=== PATIENT | female | born 1950 | race Caucasian/White ===

== ENCOUNTER 2019-03-24 01:14 | Day surgery (SDC) | payer MEDICARE, SELFPAY ==
[2019-03-24 06:52] VITALS: BP 114/95; PULSE 76; RESP 18; TEMP 36.5; O2SAT 96
[2019-03-24] MEDS: LACTATED RINGERS 1,000 ML 150 ML IV CONT (07:11)
--- NOTE | 2019-03-24 07:54 | PM.IMHP ---
H&P: HPI History of Present Illness Chief complaint: Neoplasm Screening Narrative: Molly Morillo is a 68 year old female presents today for surveillance colonoscopy. She reports last colonoscopy was in 2017 and had polyps. She was told to come back in 1 year but got behind. She denies any acute bowel habit changes, diarrhea, constipation, melena, hematochezia, abdominal pains or rectal pains. Denies any upper Gi symptoms. Denies abnormal weight loss, fever or chills. She is also concerned about elevated LFT. Alk phos 136, AST 102, and ALT 60. It appears they were elevated in 2017 as well. She had abd us 01/2019 and had noted hepatic steatosis. Acute hepatitis panel was negative. She does drink 2 glasses of wine nightly for the last ten years Review of Systems Review of Systems: All systems reviewed & are unremarkable except as noted in HPI and below PMFSH Past Medical History Medical History (Updated 03/24/19 @ 07:58 by Caitlyn Mi, APPLIANCE TESTER) Adult hypothyroidism Anxiety Chronic GERD Congenital absence of one kidney Depression Elevated liver enzymes Hx of adenomatous colonic polyps Mixed hyperlipidemia NAFLD (nonalcoholic fatty liver disease) JANNETTE (obstructive sleep apnea) Surgical History Surgical History (Updated 03/24/19 @ 07:59 by Caitlyn Mi, APPLIANCE TESTER) Hx of colonoscopy Hx of repair of left rotator cuff Hx of total hysterectomy Family History Family History (Updated 03/24/19 @ 07:59 by Caitlyn Mi, APPLIANCE TESTER) Mother Hypertension Father Family history of diabetes mellitus in first degree relative Sibling Lung cancer Social History Social History (Updated 03/24/19 @ 08:00 by Caitlyn Mi, APPLIANCE TESTER) Smoking packs per day: 2 Smoking cigarettes per day: 40.0 Years smoked: 30 Smoking pack-years: 60.00 Smoking status: Former smoker Tobacco type: cigarettes Second hand tobacco smoke exposure: Yes Smoking end date: 02/09/15 Alcohol intake: current Drinks per week: 14 Alcohol use details: 2 glasses of wine nightly Substance use: never Gender identity (if verbalized by the patient): Female Meds Home Medications and Allergies Home Medications Medication Instructions Recorded Confirmed Type alprazolam 0.5 mg tablet 0.5 mg PO PRN PRN 12/17/18 03/23/19 History sertraline 50 mg tablet 50 mg PO DAILY #90 tablet 12/27/18 03/24/19 Rx levothyroxine 88 mcg tablet 88 mcg PO DAILY #90 tablet 03/09/19 03/23/19 Rx simvastatin 40 mg PO DAILY 03/23/19 03/24/19 History trazodone 50 mg PO HS 03/23/19 03/24/19 History Allergies Allergy/AdvReac Type Severity Reaction Status Date / Time cefuroxime Allergy Unknown Redness of Verified 03/24/19 06:51 Skin doxycycline Allergy Unknown Redness of Verified 03/24/19 06:51 Skin Vital Signs Vital Signs - 24 hr 03/24/19 06:52 Temperature 36.5 C Pulse Rate 76 Respiratory Rate 18 Blood Pressure 114/95 H Pulse Oximetry 96 Exam Const: General: cooperative, healthy appearing, comfortable, alert and awake Nutritional Appearance: average body habitus Orientation/consciousness: oriented to person, oriented to place, oriented to time and patient oriented x3 Limitations: no limitations HENMT: Head: normal to inspection and normocephalic Mouth: Yes Normal oral and palatal mucosa present and Yes moist mucous membranes Neck: Neck: normal visual inspection, supple and no JVD Carotids: no bruits Resp: Effort & Inspection: normal respiratory effort and no respiratory distress Auscultation: clear to auscultation bilaterally Cardio: Rate: regular rate Rhythm: regular rhythm Heart sounds: S1 normal heart sound present, S2 normal heart sound present, no gallops, no murmurs and no rubs GI: Inspection: normal to inspection GI Palp: No abdominal tenderness and No No hepatosplenomegaly present Percussion: Yes normal to percussion Auscultation: normal bowel sounds Rectal Exam: deferred Skin: General skin exam: normal color L
--- NOTE | 2019-03-24 08:03 | P.PNAN_ITS ---
Anes - Initial Pre Proc Eval Procedure: Operation Date: 03/24/19 08:00 Proposed Procedures p Screening Colonoscopy - Lavelle Mayen DO Date/Time: 03/24/19 08:03 Surgeon: Lavelle Mayen DO Pre Op Diagnosis: Neoplasm Screening Patient Data Age: 68 Gender: F Height: 5 ft 1 in Weight: 64.3 kg Last Vital Signs Temp 97.7 F 03/24/19 06:52 Pulse 76 03/24/19 06:52 Resp 18 03/24/19 06:52 BP 114/95 H 03/24/19 06:52 Pulse Ox 96 03/24/19 06:52 Allergies Allergy/AdvReac Type Severity Reaction Status Date / Time cefuroxime Allergy Unknown Redness of Verified 03/24/19 06:51 Skin doxycycline Allergy Unknown Redness of Verified 03/24/19 06:51 Skin Home Medications Medication Instructions Recorded Confirmed Type alprazolam 0.5 mg tablet 0.5 mg PO PRN PRN 12/17/18 03/23/19 History sertraline 50 mg tablet 50 mg PO DAILY #90 tablet 12/27/18 03/24/19 Rx levothyroxine 88 mcg tablet 88 mcg PO DAILY #90 tablet 03/09/19 03/23/19 Rx simvastatin 40 mg PO DAILY 03/23/19 03/24/19 History trazodone 50 mg PO HS 03/23/19 03/24/19 History Patient hx anesthesia problems: none Family hx anesthesia problems: none PMFSH Past Medical History Medical History (Updated 03/24/19 @ 07:58 by Caitlyn Mi, COMPLAINTS COORDINATOR) Adult hypothyroidism Anxiety Chronic GERD Congenital absence of one kidney Depression Elevated liver enzymes Hx of adenomatous colonic polyps Mixed hyperlipidemia NAFLD (nonalcoholic fatty liver disease) JANNETTE (obstructive sleep apnea) Surgical History Surgical History (Updated 03/24/19 @ 07:59 by Caitlyn Mi, COMPLAINTS COORDINATOR) Hx of colonoscopy Hx of repair of left rotator cuff Hx of total hysterectomy Family History Family History (Updated 03/24/19 @ 07:59 by Caitlyn Mi, COMPLAINTS COORDINATOR) Mother Hypertension Father Family history of diabetes mellitus in first degree relative Sibling Lung cancer Social History Social History (Updated 03/24/19 @ 08:00 by Caitlyn Mi, COMPLAINTS COORDINATOR) Smoking packs per day: 2 Smoking cigarettes per day: 40.0 Years smoked: 30 Smoking pack-years: 60.00 Smoking status: Former smoker Tobacco type: cigarettes Second hand tobacco smoke exposure: Yes Smoking end date: 02/09/15 Alcohol intake: current Drinks per week: 14 Alcohol use details: 2 glasses of wine nightly Substance use: never Gender identity (if verbalized by the patient): Female Anes - Eval Final PreProcedure Day of Procedure 03/24/19 08:03 Patient weight: normal Heart: regular rate and rhythm Lungs: clear to auscultation Airway: Mallampati scale class III Neurological: alert and oriented Last oral intake: >/= 8 hours ASA classification: III Emergent: no Anesthetic plan: proceed Anesthesia type and monitoring: general GIVS and standard monitoring Informed Consent: The patient's anesthetic plan and its attendant risks and benefits were discussed with the patient/family/POA. Questions were solicited and answers provided to the satisfaction of the patient/family/POA.
[2019-03-24 08:38] VITALS: BP 104/54; PULSE 76; RESP 24; O2SAT 94
[2019-03-24 08:48] VITALS: BP 110/60; PULSE 69; RESP 18; O2SAT 94
[2019-03-24 08:58] VITALS: BP 121/66; PULSE 69; RESP 20; O2SAT 95
== END 2019-03-24 09:20 | disposition home or self-care (01) ==
PROVIDERS: PCP Internal Medicine; Visit Provider Internal Medicine Gastroenterology
PROC: 0DJD8ZZ Inspection of Lower Intestinal Tract, Via Natural or Artificial Opening Endoscopic (ICD-10-PCS; CPT 45378; principal; 2019-03-24 08:00)
DX: Z12.11 Encounter for screening for malignant neoplasm of colon (principal); K64.8 Other hemorrhoids; Z86.010 Personal history of colon polyps; K21.9 Gastro-esophageal reflux disease without esophagitis; E03.9 Hypothyroidism, unspecified; E78.2 Mixed hyperlipidemia; G47.33 Obstructive sleep apnea (adult) (pediatric); K76.0 Fatty (change of) liver, not elsewhere classified; Q60.0 Renal agenesis, unilateral; F41.8 Other specified anxiety disorders; Z87.891 Personal history of nicotine dependence
CPT/HCPCS: G0105; J2704; J7120

== ENCOUNTER 2019-12-15 10:24 | Outpatient (CLI) | payer MEDICARE, SELFPAY ==
--- NOTE | ~2019-12-15 | US_ITS ---
EXAMINATION: US right upper quadrant EXAM DATE: 12/15/2019 11:49 INDICATION: R10.11 - Right upper quadrant pain RUQ PAIN . TECHNIQUE: Multiple grayscale and Doppler images of the abdomen right upper quadrant were obtained (b y a technologist who performed the scan) and subsequently reviewed. Comparison is made to prior exami nation from 01/10/2019. FINDINGS: The pancreatic head and body are normal in appearance. The pancreatic tail is not visualized. The l iver has normal echogenicity and contour. There are no focal liver lesions identified. There is no evidence of intrahepatic biliary duct dilation. Portal venous flow was seen in the hepatopedal, nor mal direction and has normal Doppler waveform. No right-sided hydronephrosis. Common bile duct measures 6 mm, which is normal. The gallbladder wall is normal in thickness, with ex pected amount of distention. No sonographic evidence of pericholecystic fluid. There is no cholelit hiases. Technologist performing exam reports patient did not demonstrate sonographic Magaña's sign. Please note that this sign is less reliable in patients who have received pain medication. IMPRESSION: Unremarkable abdominal ultrasound exam. Reviewed, dictated and finalized at location B. OPERATIONS ADVISOR
== END 2019-12-15 10:25 | disposition home or self-care (01) ==
PROVIDERS: PCP Internal Medicine; Visit Provider Internal Medicine
DX: R10.11 Right upper quadrant pain (principal)
CPT/HCPCS: 76705

== ENCOUNTER 2020-01-18 08:41 | Outpatient (CLI) | payer MEDICARE, SELFPAY ==
--- NOTE | ~2020-01-18 | DEXA_ITS ---
Bone Density Report Name: Molly Morillo Age: 69 Sex: Female Ethnicity: White Date of : 1950 Indication: osteopenia; hysterectomy; postmenopausal Referring Provider: CRISPIN BROUSSARD Study: Bone densitometry was performed. Exam Date: January 18, 2020 Accession number: [id number] Bone Density: Region BMD T-score Z-score Classification AP Spine (L1-L4) 0.907 -1.3 0.9 Osteopenia Femoral Neck (Left) 0.650 -1.8 0.1 Osteopenia Total Hip (Left) 0.709 -1.9 -0.3 Osteopenia Total Hip Bilateral Avg 0.735 -1.7 -0.1 Osteopenia Femoral Neck (Right) 0.635 -1.9 0.0 Osteopenia Total Hip (Right) 0.761 -1.5 0.1 Osteopenia World Health Organization criteria for BMD impression classify patients as: Normal (T-score at or above -1.0), Osteopenia (T-score between -1.0 and -2.5), or Osteoporosis (T-score at or below -2.5). 10-year Fracture Risk(1): Major Osteoporotic Fracture 12% Hip Fracture 2.4% Reported Risk Factors: US (), Neck BMD=0.635, BMI=25.6 (1) FRAX(R) Version 3.08. Fracture probability calculated for an untreated patient. Fracture probability may be lower if the patient has received treatment. Previous Exams: Region Exam Age BMD T-score BMD Change BMD Change Date g/cm2 vs Baseline vs Previous AP Spine(L1-L4) 01/18/2020 69 0.907 -1.3 -0.070(-7.1%)# -0.024(-2.5%)# 01/02/2012 61 0.931 -1.1 -0.046(-4.7%)# -0.046(-4.7%)# 02/19/2006 55 0.977 -0.6 Total Hip(Left) 01/18/2020 69 0.709 -1.9 -0.072(-9.2%)# -0.038(-5.1%)# 01/02/2012 61 0.747 -1.6 -0.034(-4.3%)# -0.034(-4.3%)# 02/19/2006 55 0.780 -1.3 Total Hip(Right) 01/18/2020 69 0.761 -1.5 -0.054(-6.6%)# -0.010(-1.2%)# 01/02/2012 61 0.771 -1.4 -0.044(-5.4%)# -0.044(-5.4%)# 02/19/2006 55 0.815 -1.0 *Denotes significance at 95% confidence level, LSC for AP Spine = 0.022 g/cm2, LSC for Total Hip = 0.027 g/cm2 Clinical Information Provided by Patient: Has the following medical conditions: Hysterectomy Patient maximum height was 62.5 Menopause Age: 48 No regular weight bearing exercise Does not regularly consume dairy products Onset of menses at age 13 Number of children 2 Impression: The patient has low bone mass, based on the Left Total Hip T-score. The patient has an estimated ten-year risk of hip fracture of 2.4% and an estimated ten-year risk of major fracture of 12%, based on the WHO FRAX algorithm. No significant bone loss was observed.
--- NOTE | ~2020-01-18 | MM_ITS ---
EXAMINATION: MM screening [facility] w [facility] HISTORY: Screening TECHNIQUE: Craniocaudal and mediolateral oblique 3-D tomosynthesis images were obtained and synthetic 2-D images were generated. CAD analysis was submitted and interpreted. COMPARISON: Comparison to multiple prior studies sequentially, with oldest reviewed study dated 12/11. BREAST PARENCHYMAL COMPOSITION: The breasts are heterogeneously dense, which may obscure small masses . FINDINGS: There is a focal asymmetry in the upper outer quadrant of the right breast, partially obscu red by fibroglandular tissue. The left breast are stable without evidence for malignancy. IMPRESSION: 1. Focal asymmetry upper outer quadrant of the right breast. 2. Additional mammographic views and possible breast ultrasound are recommended. BI-RADS Category 0: Incomplete: Needs additional imaging evaluation. Reviewed, dictated and finalized at location A. ENT REP IMPRESSION: 1. Focal asymmetry upper outer quadrant of the right breast. 2. Additional mammographic views and possible breast ultrasound are recommended . BI-RADS Category 0: Incomplete: Needs additional imaging evaluation.
== END 2020-01-18 08:42 | disposition home or self-care (01) ==
LOC: ANHIMG 08:43
PROVIDERS: PCP Internal Medicine; Visit Provider Internal Medicine
DX: Z12.31 Encounter for screening mammogram for malignant neoplasm of breast (principal); Z78.0 Asymptomatic menopausal state; R92.8 Other abnormal and inconclusive findings on diagnostic imaging of breast; M85.88 Other specified disorders of bone density and structure, other site; M85.852 Other specified disorders of bone density and structure, left thigh; M85.851 Other specified disorders of bone density and structure, right thigh
CPT/HCPCS: 77063; 77067; 77080

== ENCOUNTER 2020-02-20 11:09 | Outpatient (CLI) | payer MEDICARE, SELFPAY ==
--- NOTE | ~2020-02-20 | MMUS_ITS ---
EXAMINATION: MM diagnostic mammo unilat RT, US breast RT complete HISTORY: Low up right breast asymmetry TECHNIQUE: Additional 3-D tomosynthesis images of the right breast were performed and synthetic 2-D i mages were generated. CAD analysis was submitted and interpreted. High resolution right breast ultras ound was performed. COMPARISON: Comparison to multiple prior studies sequentially, with oldest reviewed study dated 12/11. BREAST PARENCHYMAL COMPOSITION: The breasts are heterogenously dense, which may obscure small masses. FINDINGS: MAMMOGRAPHIC FINDINGS: The breasts are extremely dense, which lowers the sensitivity of mammography. There are no suspicious masses, calcifications or architectural distortion in the right breast to suggest malignancy. Focal asymmetry is less dense with spot compression views, compatible with the proposed fibroglandular tiss ue. ULTRASOUND: Right breast ultrasound: Normal heterogeneous echotexture without focal solid or cystic mass. IMPRESSION: 1. No mammographic or sonographic evidence for malignancy in the right breast. 2. Routine yearly screening mammogram and regular clinical breast examination are recommended. BI-RADS Category 1: Negative Reviewed, dictated and finalized at location A. EYOR MECHANIC IMPRESSION: 1. No mammographic or sonographic evidence for malignancy in the right breast. 2. Routine yearly screening mammogram and regular clinical breast examination a re recommended. BI-RADS Category 1: Negative
== END 2020-02-20 11:10 | disposition home or self-care (01) ==
LOC: ANHIMG 11:09
PROVIDERS: PCP Internal Medicine; Visit Provider Internal Medicine
DX: R92.8 Other abnormal and inconclusive findings on diagnostic imaging of breast (principal)
CPT/HCPCS: 76641; 77065

== ENCOUNTER 2020-06-29 08:48 | Outpatient (CLI) | payer MEDICARE, SELFPAY ==
--- NOTE | ~2020-06-29 | US_ITS ---
EXAMINATION: US thyroid EXAM DATE: 06/29/2020 09:23 INDICATION: Z86.39 - Personal history of other endocrine, nutritional and metabolic disease. Thyroid disorder. TECHNIQUE: Multiple grayscale and Doppler images of the thyroid were obtained (by a technologist who performed the scan) and subsequently reviewed. Individual nodules and recommendations may be reporte d in accordance with TI-RADS system as designated by the 2017 ACR White Paper TI-RADS committee. Comp arison is made to prior examination from 05/30/2011. FINDINGS: Right thyroid lobe measures 3.5 x 0.8 x 0.5 cm, the left measuring 2.6 x 0.7 x 0.7 cm. These dimensio ns are small, and smaller than on previous examination 2011. No focal nodule or regional lymphadenopa thy identified. IMPRESSION: Small but otherwise unremarkable thyroid. Reviewed, dictated and finalized at location A.
--- NOTE | ~2020-06-29 | XR_ITS ---
EXAMINATION: XR barium swallow modified EXAM DATE: 06/29/2020 09:42 INDICATION: R13.10 - Dysphagia, unspecified. TECHNIQUE: Modified barium esophagram was performed by speech pathologist with radiologist Dr. Jeronimo Díaz present to administered fluoroscopy. Speech pathologist administered barium in varying consis tencies as per speech pathologist documentation. This was recorded on tape. There was total fluorosc opic time of 1.1. The DAP for this procedure was 8.3 Gycm2. A total of 2 images sent to PACS from t he exam. FINDINGS: Large osteophytes at the C4-5 and C5-6 levels. Oral stage: Adequate function. Pharyngeal phase: Adequate function. Laryngeal penetration: None. Aspiration: None. Laryngeal sensitivity: Present. IMPRESSION: Normal modified esophagram exam. Please refer to speech pathologist findings and specifi c feeding recommendations. Reviewed, dictated and finalized at location A. IMPRESSION: Normal modified esophagram exam. Please refer to speech pathologis t findings and specific feeding recommendations.
--- NOTE | ~2020-06-29 | CT_ITS ---
EXAMINATION: CT lung screening EXAM DATE: 06/29/2020 09:27 INDICATION: Z87.891 - Personal history of nicotine dependence. TECHNIQUE: Spiral low dose CT of the chest without contrast. Axial, coronal and sagittal images were reviewed. The dose-length product (DLP) for this examination was 93.73 mGy-cm. The exposure was ta ilored according to patient size (auto mA exposure control), and iterative reconstruction (ASIR) was used as additional dose reduction technique. Comparison is made to prior examination from 12/20/2018. FINDINGS: There is moderate emphysema. There are 2 calcified right lung granulomas. Right middle lob e and lingular subsegmental atelectasis. Tracheobronchial tree is patent. There is no mediastinal, hilar or axillary lymphadenopathy. There are no pleural or pericardial effusions. There is no pn eumothorax. Heart normal in size. There is mild coronary arterial calcification, arterial scleros is. Upper abdomen is unremarkable. There is thoracic spondylosis without osteoblastic or osteolytic lesions identified. IMPRESSION: Lung-RADS category 1, negative (<1%chance of malignancy); recommend continued LDCT screen ing in 1 year. > Reviewed, dictated and finalized at location A. IMPRESSION: Lung-RADS category 1, negative (<1%chance of malignancy); recommend continued LDCT screening in 1 year. >
--- NOTE | 2020-06-29 09:51 | STOPEVAL ---
MODIFIED BARIUM SWALLOW EVALUATION: Thank you for referring Molly Morillo to [facility].? Attending Provider: MAKENNA Vasques/ Dr Persaud FAX: [phone] Referring Provider: Outpatient Past Medical History Past Medical History Source of Past Medical History Patient Neurological History Hx Neurological Disorders No Significant History Cardiovascular History Hx Heart Murmur Yes Hx Hypercholesterolemia Yes Respiratory History Hx Sleep Apnea Yes: uses cpap Gastrointestinal History Hx Appendectomy Yes Hx Polyps Yes: colon Hx Other Gastrointestinal Disorders Yes: elevated liver enzymes 2019 Genitourinary History Hx Other Genitourinary Disorders Yes: born with only one kidney Musculoskeletal History Hx Orthopedic Surgery Yes: left rotator cuff Hematological History Hx Blood Transfusions Yes: post vag Endocrine History Hx Hypothyroidism Yes HEENT History Hx HEENT Disorders No Significant History Integumentary History Hx Skin Disorders No Significant History Reproductive History Hx Hysterectomy Yes Psychosocial History Hx Anxiety Yes Pain History History of Any Previous or Ongoing No Significant History Instance of Pain Anesthesia History Hx Anesthesia Reactions No Significant History Prior Level of Function Prior Swallow Level Prior Intake Method Oral Prior Diet Regular (Level 7 Diet) Prior Liquid Consistency Thin (Level 0 Diet) Modified Barium Swallow Evaluation Recent Swallowing History Reports Dysphagia Yes: chokes on thin liquids Onset of Dysphagia for years History of Dysphagia No Other Factors Impacting Dysphagia None History of Pneumonia Yes: 2 years ago Reported Difficult Consistencies Thin Liquids Intake Method Prior to Swallow Oral Evaluation Diet Prior to Swallow Evaluation Regular, Level 7 Liquid Consistency Prior to Swallow Thin (0) Evaluation Consistency Solid Consistency Method of Presentation Spoon Oral Preparatory Symptoms None Oral Phase Symptoms None Pharyngeal Phase Symptoms Within Functional Limits,Bony Protuberance Severity of Vallecular Residue None - 0% No Residue Severity of Pyriform Sinus Residue None - 0% No Residue 8 Point Laryngeal Penetration-Aspiration Material Does Not Enter Airway Scale Pharyngeal Phase Comments moderately large osteophytes at C4/5 without effect Cervical/Esophageal Symptoms None Mixed Consistency Method of Presentation Spoon Oral Preparatory Symptoms None Oral Phase Symptoms None Pharyngeal Phase Symptoms
== END 2020-06-29 08:49 | disposition home or self-care (01) ==
PROVIDERS: PCP Internal Medicine; Visit Provider Nurse Practitioner
DX: R13.10 Dysphagia, unspecified (principal); Z87.891 Personal history of nicotine dependence; Z86.39 Personal history of other endocrine, nutritional and metabolic disease; M47.814 Spondylosis without myelopathy or radiculopathy, thoracic region
CPT/HCPCS: 71271; 76536; 92611

== ENCOUNTER → 2020-10-25 00:21 | Outpatient (CLI) | payer MEDICARE, SELFPAY ==
[2020-10-25 19:52] LABS: SARS-CoV-2 RNA PCR Negative
== END ==
PROVIDERS: PCP Internal Medicine; Visit Provider Internal Medicine
DX: R68.89 Other general symptoms and signs (principal); Z20.822 Contact with and (suspected) exposure to COVID-19
CPT/HCPCS: C9803; U0003; U0005

== ENCOUNTER 2021-03-29 14:49 | Outpatient (CLI) | payer MEDICARE, SELFPAY ==
--- NOTE | ~2021-03-29 | MM_ITS ---
EXAMINATION: MM screening [facility] w [facility] HISTORY: Screening TECHNIQUE: Craniocaudal and mediolateral oblique 3-D tomosynthesis images were obtained and synthetic 2-D images were generated. CAD analysis was submitted and interpreted. COMPARISON: Comparison to multiple prior studies sequentially, with oldest reviewed study dated 03/08. BREAST PARENCHYMAL COMPOSITION: The breasts are heterogenously dense, which may obscure small masses FINDINGS: There is no evidence of suspicious mass, calcification, or architectural distortion to sugg est malignancy in either breast. There has been no suspicious interval change. IMPRESSION: 1. No mammographic evidence of malignancy. 2. Recommend routine screening mammography in one year. BI-RADS Category 1: Negative Reviewed, dictated and finalized at location A. STANT FOREMAN
== END 2021-03-29 14:50 | disposition home or self-care (01) ==
LOC: ANHIMG 14:50
PROVIDERS: PCP Internal Medicine; Visit Provider Nurse Practitioner
DX: Z12.31 Encounter for screening mammogram for malignant neoplasm of breast (principal)
CPT/HCPCS: 77063; 77067

== ENCOUNTER → 2021-10-31 13:25 | Outpatient (CLI) | payer MEDICARE, SELFPAY ==
--- NOTE | ~2021-10-31 | XR_ITS ---
XR lumbar spine 2-3V DATE: 10/31/2021 14:00 INDICATION: Low back pain for 3 months. No injury. TECHNIQUE: AP, lateral, coned lateral lumbosacral views COMPARISON: 09/08/2017 lumbar spine FINDINGS: Prominent osteopenia. There is mild thoracolumbar levoscoliosis. Normal alignment of the lumbar spine. No fracture or bone destruction is evident. The lumbar pedicles appear intact. There is mild degenerative spurring and mild degenerative disc disease of the lumbar spine. The sacroiliac joints are intact IMPRESSION: Osteopenia Mild levoscoliosis Mild degenerative change Reviewed, dictated and finalized at location B.
== END ==
PROVIDERS: PCP Internal Medicine; Visit Provider Nurse Practitioner
DX: M54.50 Low back pain, unspecified (principal); M79.606 Pain in leg, unspecified; M85.88 Other specified disorders of bone density and structure, other site
CPT/HCPCS: 72100

== ENCOUNTER → 2021-11-26 11:54 | Outpatient (CLI) | payer MEDICARE, SELFPAY ==
--- NOTE | ~2021-11-26 | MR_ITS ---
EXAMINATION: MR lumbar spine wo con DATE: 11/26/2021 12:25 INDICATION: Low back pain with radiculopathy. TECHNIQUE: Magnetic resonance imaging (MRI) of the lumbar spine was performed without intravenous con trast. Sequences included sagittal T2-weighted FSE, sagittal T2-weighted FS FSE, sagittal T1-weighted FSE, and axial T2-weighted FSE. COMPARISON: Lumbar spine radiographs 10/31/2021, CT abdomen 03/19/2004 FINDINGS: There is 7 degrees levocurvature of lumbar spine. Vertebral body heights are normal. Interv ertebral disc heights are normal. The distal spinal cord signal intensity is normal. The conus medull janee is at L1-L2. 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 The following disc levels are spe cifically discussed: L1-L2: The disc is mildly bulging. There is mild bilateral facet joint osteoarthritis. There is no ne ural foraminal stenosis. There is mild central canal stenosis. L2-L3: The disc is bulging. There is moderate right and severe left facet joint osteoarthritis. There is mild bilateral neural foraminal stenosis. There is mild central canal stenosis. L3-L4: The disc is bulging. There is severe bilateral facet joint osteoarthritis. There is mild bilat eral neural foraminal stenosis. There is mild central canal stenosis. L4-L5: The disc is bulging. There is severe bilateral facet joint osteoarthritis. There is mild bilat eral neural foraminal stenosis. There is mild central canal stenosis. L5-S1: The disc is bulging and has an annular fissure. There is moderate right and severe left facet joint osteoarthritis. There is mild bilateral neural foraminal stenosis. There is mild central canal stenosis. IMPRESSION: 1. Mild lumbar spondylosis. Reviewed, dictated and finalized at location A. IMPRESSION: 1. Mild lumbar spondylosis.
== END ==
PROVIDERS: PCP Internal Medicine; Visit Provider Nurse Practitioner
DX: M47.26 Other spondylosis with radiculopathy, lumbar region (principal)
CPT/HCPCS: 72148

== ENCOUNTER 2022-07-10 09:46 | Outpatient (CLI) | payer MEDICARE, SELFPAY ==
--- NOTE | ~2022-07-10 | XR_ITS ---
Left wrist Technique: PA, oblique, lateral, and ulnar deviation views were obtained. Clinical History: Pain Findings: No acute fracture or dislocation is seen. There is severe degenerative change of the STT ar ticulations. There are minimal degenerative change of the first CMC joint and radiocarpal articulatio ns. Soft tissues are unremarkable. 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 Additional mild degenerative changes, as above. Reviewed, dictated and finalized at location M. 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 Additional mild degenerative changes, as above.
== END 2022-07-10 09:47 | disposition home or self-care (01) ==
PROVIDERS: PCP Family Medicine; Visit Provider Nurse Practitioner
DX: M25.539 Pain in unspecified wrist (principal); G89.29 Other chronic pain; L98.9 Disorder of the skin and subcutaneous tissue, unspecified
CPT/HCPCS: 73110; 88305; 88312; 88342

== ENCOUNTER 2022-07-10 10:36 | Outpatient (NON) | payer MEDICARE, SELFPAY | END 2022-07-10 10:37 | disposition home or self-care (01) | LOC: ANHLAB 07-11 10:38 | PROVIDERS: PCP Family Medicine; Visit Provider Nurse Practitioner | DX: D49.2 Neoplasm of unspecified behavior of bone, soft tissue, and skin (principal) | CPT/HCPCS: 88305; 88312; 88342 ==

== ENCOUNTER 2022-11-28 13:22 | Outpatient (CLI) | payer MEDICARE, SELFPAY ==
--- NOTE | ~2022-11-28 | MM_ITS ---
EXAMINATION: MM screening [facility] BI w earle HISTORY: Screening TECHNIQUE: Craniocaudal and mediolateral oblique 3-D tomosynthesis images were obtained and synthetic 2-D images were generated. CAD analysis was submitted and interpreted. COMPARISON: Comparison to multiple prior studies sequentially, with oldest reviewed study dated 12/10. BREAST PARENCHYMAL COMPOSITION: The breasts are heterogeneously dense, which may obscure small masses . FINDINGS: There are benign breast calcifications. There is no evidence of suspicious mass, calcificat ion, or architectural distortion to suggest malignancy in either breast. There has been no suspicious interval change. IMPRESSION: 1. No mammographic evidence of malignancy. 2. Recommend routine screening mammography in one year. BI-RADS Category 1: Negative Reviewed, dictated and finalized at location A.
== END 2022-11-28 13:23 | disposition home or self-care (01) ==
LOC: ANHIMG 13:23
PROVIDERS: PCP Nurse Practitioner; Visit Provider Nurse Practitioner
DX: Z12.31 Encounter for screening mammogram for malignant neoplasm of breast (principal)
CPT/HCPCS: 77063; 77067

== ENCOUNTER 2024-05-05 07:29 | Outpatient (CLI) | payer MEDICARE, SELFPAY ==
--- NOTE | ~2024-05-05 | US_ITS ---
US abdomen limited INDICATION: Right upper quadrant pain PROCEDURE: Realtime right upper abdominal ultrasound. COMPARISON: No prior studies for comparison. FINDINGS: The pancreas is normal without focal mass or pancreatic ductal dilation. Liver echotexture is increased and somewhat heterogeneous. No discrete hepatic mass. Nodular liver surface, consistent with cirrhosis. There is normal directional flow in the portal vein. The gallbladder is normal without stones, gallbladder wall thickening or pericholecystic fluid. Comm on bile duct measures 6 mm. No sonographic Magaña's sign. IMPRESSION: 1: Cirrhosis of the liver. Reviewed, dictated and finalized at location A. IMPRESSION: 1: Cirrhosis of the liver.
--- OUTSIDE RECORDS SUMMARY | 2024-05-05 07:33 | XMS_ITS | Referral Summary ---
Author Organization [facility] Address Pending sale to [facility] [place] [address] Care Team Providers Care Stenciling Machine Tender Name Role Phone Sy Persaud DO Primary Care Provider [phone] Allergies No known active allergies Medications albuterol HFA (PROVENTIL HFA,VENTOLIN HFA,PROAIR HFA) 90 mcg/actuation inhaler Inhale 2 puffs every 6 (six) hours as needed 1 Active ALPRAZolam (XANAX) 0.25 mg tablet TAKE 1 TABLET BY MOUTH AT BEDTIME NEEDED FOR SLEEP 1 Active cholestyramine (QUESTRAN) 4 gram packet Take 4 g by mouth 8 Active hyoscyamine (LEVSIN) 0.125 mg tablet Take 125 mcg by mouth 3 (three) times a day 8 Active pantoprazole (PROTONIX) [address] for susp in packet [place] 40 mg per NG tube daily Active sertraline (ZOLOFT) 50 mg tablet Take 50 mg by mouth daily 0 Active simvastatin (ZOCOR) 40 mg tablet Take 40 mg by mouth nightly Active levothyroxine (SYNTHROID) 75 mcg tablet 1 Active cholecalciferol (VITAMIN D-3) 50,000 unit capsule Take 50,000 Units by mouth once a week 1 Active meloxicam (MOBIC) 15 mg tabletIndicatio ns:Osteoarthrit is Take 1 tablet (15 mg total) by mouth daily 30 tablet 1 2 Active Active Problems Problem Noted Date Diagnosed Date Patellofemoral chondrosis of right knee 03/19/19 22 Effusion of right knee 11/05/2020 Acute pain of right knee 11/05/2020 Pradhan's cyst of knee, right 11/05/2020 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 Immunizations Immunization Administration Dates Next Due Moderna SARS-CoV-2 Monovalent Vaccination (12+ Y RS) 04/11/2020,03/14/2020 Social History Tobacco Use Types Packs/Day Years Used Date Smoking Tobacco: Former Cigarettes 0.1 51 1 965 - 2016 Smokeless Tobacco: Never Tobacco Cessation:Counseling Given: Not Answered Comments Unknown Sex and Gender Information Value Date Recorded Sex Assigned at Not on file Legal Sex Female 9:19 PM BOILER INSTALLER Gender Identity Not on file Sexual Orientation Not on file Last Filed Vital Signs Vital Sign Reading Time Taken Comments Blood Pressure 146/80 03/10/2022 2:33 PM BOILER INSTALLER Pulse 83 03/10/2022 2:33 PM BOILER INSTALLER Temperature 36.8 C (98.2 F) 03/10/2022 2:33 PM BOILER INSTALLER Respiratory Rate - - Oxygen Saturation - - Inhaled Oxygen Concentration - - Weight 68.7 kg (151 lb 6.4 oz) 03/10/2022 2:33 P M BOILER INSTALLER Height 154.9 cm (5' 1 ) 03/10/2022 2:33 PM BOILER INSTALLER Body Mass Index 28.61 03/10/2022 2:33 PM BOILER INSTALLER Plan of Treatment Not on file Insurance [facility] MDCR HMO REF MEDICARE ADVANTAGE Member Subscriber Plan / Payer (Ef fective 2022-Present) Name:Molly Morillo Relation to Subscriber:Self Name:Molly Morillo Payer ID:[id number] (NAIC) Type:[facility] MEDICARE Address: [address] HMO REF Care Teams Stenciling Machine Tender Relationship Specialty Start Date End Date Sy Persaud DO PCP - General Internal Medicine 08/21/20
--- OUTSIDE RECORDS SUMMARY | 2024-05-05 07:33 | XMS_ITS | Clinical Summary ---
Author Organization [facility] Address [address] [place] [address] Care Team Providers Care Cardiovascular Sonographer Name Role Phone Sy Persaud DO Primary Care Provider [phone] Allergies No known active allergies Medications levothyroxine 88 MCG tablet Take 88 mcg by mouth daily. Active sertraline 50 MG tablet 08/12/2019 Active simvastatin 40 MG tablet Take 40 mg by mouth. Active albuterol sulfate HFA 108 (90 Base) MCG/ACT inhaler Inhale 2 puffs into the lungs every 6 (six) hours as needed for Wheezing. 90 g 04/28/2020 Active Immunizations Name Administration Dates Next Due Tdap (Adacel) 08/21/2019 Family History Medical History Relation Comments Diabetes Father Stroke Father Relation Status Comments Father Social History Tobacco Use Types Packs/Day Years Used Date Smoking Tobacco: Former Smokeless Tobacco: Never Alcohol Use Standard Drinks/Week Comments Yes 16.7 (1 standard drink = 0.6 oz pure alcohol) Comments Unknown Sex and Gender Information Value Date Recorded Sex Assigned at Not on file Legal Sex Female 8:10 PM CDT Gender Identity Not on file Sexual Orientation Not on file Last Filed Vital Signs Vital Sign Reading Time Taken Comments Blood Pressure 130/69 04/28/2020 11:00 PM CDT Pulse 66 04/28/2020 10:01 PM CDT Temperature 36.2 C (97.2 F) 04/28/2020 7:18 PM CDT Respiratory Rate 18 04/28/2020 10:01 PM CDT Oxygen Saturation 94% 04/28/2020 11:00 PM CDT Inhaled Oxygen Concentration - - Weight 61.2 kg (135 lb) 04/28/2020 7:18 PM CDT Height 152.4 cm (5') 04/28/2020 7:18 PM CDT Body Mass Index 26.37 04/28/2020 7:18 PM CDT Plan of Treatment Health Maintenance Due Date Last Done Comments Colorectal Cancer Screening Colonoscopy (10 Years) 1950 Hepatitis C 1966 Annual Medicare Wellness Visit 2013 Dexa Scan (General) 2013 Pneumococcal Vaccine: 65+ Years (2 of 2 - PPSV23 or PCV20) 12/16/2015 12/15/2014 RSV Immunization or 60+ Years (1 - 1-dose 75+ series) 05/17/2023 COVID-19 Vaccine (3 - 2023-2 5 season) 2023 04/11/2020, 03/14/2020 Influenza Adult (#1) 2023 11/12/2019 DTaP, Tdap and Td Vaccines ( 2 - Td or Tdap) 08/20/2029 08/21/2019 Zoster Vaccines Completed 02/18/2019, 11/03/2018, 12/23/2013 Meningococcal B Vaccine Aged Out No l onger eligible based on patient's age to complete this topic Meningococcal Vaccine Aged Out No ileana kayode eligible based on patient's age to complete this topic RSV Immunizations Under 20 Months Aged Out No longer eligible b ased on patient's age to complete this topic Insurance Care Teams Cardiovascular Sonographer Relationship Specialty Start Date End Date Sy Persaud DO [address] [place] [address] PCP - General INTERNAL MEDICINE 02/01/19
--- OUTSIDE RECORDS SUMMARY | 2024-05-05 07:33 | XMS_ITS | Clinical Summary ---
Author Organization [facility] Address [address] [place] [address] Phone Care Team Providers Care Director Of Supply Chain Name Role Phone Yariel Barnett MD Primary Care Provider [phone] Allergies No known active allergies Medications levothyroxine (SYNTHROID) 88 MCG Tablet Take 88 mcg by mouth daily. Active pantoprazole (PROTONIX) 40 MG Pack 40 mg by Per NG tube route daily. Active simvastatin (ZOCOR) 40 MG Tablet Take 40 mg by mouth every evening. Active cholestyramine (QUESTRAN) 4 GM Pack Take 1 Packet by mouth 2 times daily (with meals). 180 Packet 3 02/20/2017 Active hyoscyamine (LEVSIN) 0.125 MG Tablet Take 1 Tab by mouth 3 times daily. 120 Tab 3 03/02/2017 Active Family History Medical History Relation Name Comments Lung Cancer Brother Diabetes Father Stroke Father Hypertension Mother Relation Name Status Comments Brother Father Mother Social History Tobacco Use Types Packs/Day Years Used Date Smoking Tobacco: Former Cigarettes 2 35 1 03/05/1980 - 01/04/2016 Smokeless Tobacco: Never Comments:quit december 2015 Alcohol Use Standard Drinks/Week Comments Yes 0 (1 standard drink = 0.6 oz pur e alcohol) OCCASIONAL Comments No Sex and Gender Information Value Date Recorded Sex Assigned at Not on file Legal Sex Female 12:35 PM CDT Gender Identity Not on file Sexual Orientation Not on file Occupation Industry Job Start Date Job End Date retired [employer] Not on file Not on file Not on file Last Filed Vital Signs Vital Sign Reading Time Taken Comments Blood Pressure 124/84 02/19/2017 12:41 PM SOLAR SALES Pulse 78 02/19/2017 12:41 PM SOLAR SALES Temperature 36.6 C (97.8 F) 02/19/2017 12:41 PM SOLAR SALES Respiratory Rate 18 02/19/2017 12:41 PM SOLAR SALES Oxygen Saturation 91% 02/19/2017 12:41 PM SOLAR SALES Inhaled Oxygen Concentration - - Weight 71.8 kg (158 lb 4.8 oz) 02/19/2017 12:41 PM SOLAR SALES Height 154.9 cm (5' 1 ) 02/19/2017 12:41 PM SOLAR SALES Body Mass Index 29.91 02/19/2017 12:41 PM SOLAR SALES Plan of Treatment Health Maintenance Due Date Last Done Comments Hepatitis C Virus (HCV) Screening 1950 TdaP Immunization 1950 Cologuard 1998 Immunochemical Fecal Occult Blood 1998 Pneumococcal Immunization (5 0+ years) (1 of 1 - PCV) 1998 Zoster Immunization (1 of 2) 1998 Respiratory Syncytial Virus (RSV) Immunization (Adult) (1 - 1-dose 75+ series) 05/17/2023 Influenza Immunization (#1) 2023 SARS-COV-2 Immunization ( season) 2023 Colonoscopy 03/24/2026 03/24/2019, 07/09/2016 Colorectal Cancer Screening 03/24/2026 03/24/2019, 07/09/2016 Hepatitis B Immunization Aged Out No longer eligible based on patient's age to complete this topic Meningococcal Immunization (ACWY) Aged Out No longer eligible b ased on patient's age to complete this topic Rotavirus Immunization Aged Out No lo nger eligible based on patient's age to complete this topic Procedures Procedure Name Priority Date/Time Associated Diagnosis Comments COLONOSCOPY Routine 03/24/2019 from Last 3 Months or Most Recently Relevant to Health Maintenance Results * COLONOSCOPY (03/24/2019) Lavelle Mayen DO PROCEDURE/MINOR SURGICAL ORDERA BLES Final Result from Last 3 Months or Most Recently Relevant to Health Maintenance Insurance MEDICARE C [facility] on file Care Teams Director Of Supply Chain Relationship Specialty Start Date End Date Yariel Barnett MD [address] [place], [place] [id number] PCP - General Internal Medicine 07/01/16
--- OUTSIDE RECORDS SUMMARY | 2024-05-05 07:33 | XMS_ITS | Clinical Summary ---
Author Organization [facility] Address [facility] [place] [address] Care Team Providers Care Molding Technician Name Role Phone Sy Persaud DO Primary Care Provider [phone] Allergies No known active allergies Medications albuterol [...] SARS-CoV-2 Monovalent Vaccination (12+ Y RS) 04/11/2020,03/14/2020 Surgical History Surgery Date Site/Laterality Comments [facility] TOTAL ABDOMINAL HYSTERECT W/WO RMVL TUBE OVARY Hysterectomy - (Added by TW Conv) ROTATOR CUFF REPAIR Left Medical History Medical History Date Comments Personal history of other en docrine, nutritional and metabolic disease History of hypothyro idism - (Added by TW Conv) Personal history of other di seases of the musculoskeletal system and connective tissue History of osteopenia - (Add ed by TW Conv) Anxiety Hypercholesteremia Absent kidney Family History Medical History Relation Name Comments Lung cancer Brother Malignant Neopl asm Bronchus and Lung - (Added by TW Conv) Diabetes Father Diabetes Mellit us - (Added by TW Conv) Stroke Father Hypertension Mother Hypertension - (Added by TW Conv) Relation Name Status Comments Brother Father Mother Social History Tobacco Use Types Packs/Day Years Used Date Smoking Tobacco: Former Cigarettes 0.1 51 1 965 - 2016 Smokeless Tobacco: Never Tobacco Cessation:Counseling Given: Not Answered Comments Unknown Sex and Gender Information Value Date Recorded Sex Assigned at Not on file Legal Sex Female 9:19 PM SPECIAL PROCEDURES NURSE Gender Identity Not on file Sexual Orientation Not on file Obstetrics History Last Filed Vital Signs Vital Sign Reading Time Taken Comments Blood Pressure 146/80 03/10/2022 2:33 PM SPECIAL PROCEDURES NURSE Pulse 83 03/10/2022 2:33 PM SPECIAL PROCEDURES NURSE Temperature 36.8 C (98.2 F) 03/10/2022 2:33 PM SPECIAL PROCEDURES NURSE Respiratory Rate - - Oxygen Saturation - - Inhaled Oxygen Concentration - - Weight 68.7 kg (151 lb 6.4 oz) 03/10/2022 2:33 P M SPECIAL PROCEDURES NURSE Height 154.9 cm (5' 1 ) 03/10/2022 2:33 PM SPECIAL PROCEDURES NURSE Body Mass Index 28.61 03/10/2022 2:33 PM SPECIAL PROCEDURES NURSE Plan of Treatment Health Maintenance Due Date Last Done Comments Colon Cancer Screening-Colonoscopy 1948 Depression Screening 1948 Fall Risk Assessment 1948 Hepatitis C Screening 1950 Osteoporosis Screening-Bone Density Scan 1948 Hepatitis B Screening 1966 Well Visit 65+ 2013 Covid-19 Vaccine (3 - 2023-2 5 season) 2023 04/11/2020, 03/14/2020 Influenza Vaccine (#1) 2023 , 11/03/2018, 01/19/2018, Additional history exists DTaP/Tdap/Td Vaccine (2 - Td or Tdap) 08/20/2029 08/21/2019 Pneumococcal vaccine 65+ Completed 016, 12/15/2014, 01/11/2013 Zoster Vaccine Completed 02/18/2019, 10/11, 12/23/2013 Insurance [facility] MDCR HMO REF [facility] MEDICARE ADVANTAGE Care Teams Molding Technician Relationship Specialty Start Date End Date Sy Persaud DO PCP - General Internal Medicine 08/21/20
== END 2024-05-05 07:30 | disposition home or self-care (01) ==
PROVIDERS: PCP Nurse Practitioner; Visit Provider Nurse Practitioner
DX: R10.11 Right upper quadrant pain (principal)
CPT/HCPCS: 76705

== ENCOUNTER 2024-05-06 09:06 | Outpatient (CLI) | payer MEDICARE, SELFPAY ==
--- NOTE | ~2024-05-06 | US_ITS ---
EXAMINATION: US aorta [facility] scrn DATE: 05/06/2024 10:25 CDT INDICATION: Smoking history. High cholesterol. TECHNIQUE: Grayscale, color Doppler, and pulsed Doppler images of the aorta and common iliac arteries were obtained. COMPARISON: None. FINDINGS: The proximal aorta measures 2.4 cm greatest sagittal dimension. The mid aorta measures 1.9 cm greates t sagittal dimension. The distal aorta measures 1.5 cm greatest sagittal dimension. The right common internal iliac artery measures 1.1 cm. The left common iliac artery measures 1.2 cm. 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 No left kidney identified. 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 IMPRESSION: 1. Normal caliber aorta without aneurysm. 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 Reviewed, dictated and finalized at location A.
--- OUTSIDE RECORDS SUMMARY | 2024-05-06 09:31 | XMS_ITS | Clinical Summary ---
Author Organization [facility] Address [address] [place] [address] Care Team Providers Care Rack Worker Name Role Phone Sy Persaud DO Primary Care Provider [phone] Allergies No known active allergies Medications levothyroxine [...] to complete this topic Insurance Care Teams Rack Worker Relationship Specialty Start Date End Date Sy Persaud DO [address] [place] [address] PCP - General INTERNAL MEDICINE 02/01/19
--- OUTSIDE RECORDS SUMMARY | 2024-05-06 09:31 | XMS_ITS | Clinical Summary ---
Author Organization [facility] Address [address] [place] [address] Phone Care Team Providers Care Photostat Operator Helper Name Role Phone Yariel Barnett MD Primary Care Provider [phone] Allergies No known active allergies Medications levothyroxine [...] Job Start Date Job End Date retired [employer] Not on file Not on file Not on file Last Filed Vital Signs Vital Sign Reading Time Taken Comments Blood Pressure 124/84 02/19/2017 12:41 PM DATA SOFTWARE ENGINEER Pulse 78 02/19/2017 12:41 PM DATA SOFTWARE ENGINEER Temperature 36.6 C (97.8 F) 02/19/2017 12:41 PM DATA SOFTWARE ENGINEER Respiratory Rate 18 02/19/2017 12:41 PM DATA SOFTWARE ENGINEER Oxygen Saturation 91% 02/19/2017 12:41 PM DATA SOFTWARE ENGINEER Inhaled Oxygen Concentration - - Weight 71.8 kg (158 lb 4.8 oz) 02/19/2017 12:41 PM DATA SOFTWARE ENGINEER Height 154.9 cm (5' 1 ) 02/19/2017 12:41 PM DATA SOFTWARE ENGINEER Body Mass Index 29.91 02/19/2017 12:41 PM DATA SOFTWARE ENGINEER Plan of Treatment Health Maintenance Due Date [...] Relevant to Health Maintenance Insurance MEDICARE C [facility] on file Care Teams Photostat Operator Helper Relationship Specialty Start Date End Date Yariel Barnett MD [address] [place], [place] [id number] PCP - General Internal Medicine 07/01/16
== END 2024-05-06 09:07 | disposition home or self-care (01) ==
PROVIDERS: PCP Nurse Practitioner; Visit Provider Nurse Practitioner
DX: R10.9 Unspecified abdominal pain (principal); Z72.0 Tobacco use
CPT/HCPCS: 76706

== ENCOUNTER 2024-05-09 10:48 | Outpatient (CLI) | payer MEDICARE, SELFPAY ==
--- NOTE | ~2024-05-09 | CT_ITS ---
CT Scan of the Chest without Contrast: Clinical Indication: Lung cancer screening, nicotine dependence Technique: Contiguous sections were acquired throughout the chest without intravenous contrast. Dose reduction technique was used on this scan by utilizing automated exposure control and iterative recon struction technique. The dose-length product (DLP) was 103.34 mGy-cm. COMPARISON: 06/29/2020 Findings: There is no evidence of any significant mediastinal, hilar or axillary lymphadenopathy. The mediastin al soft tissues appear normal. There is no evidence of pleural or pericardial effusion. Moderate emphysema present. There are peripheral posterior airspace opacities, suggestive of atelecta sis/hypoventilatory change, less likely chronic organizing pneumonia. No discrete pulmonary nodule ev ident.. Images through the upper abdomen reveal no abnormalities. Impression: Lung RADS 2: Benign appearance 12 month follow-up screening CT advised. Reviewed, dictated and finalized at [facility]. Impression: Lung RADS 2: Benign appearance 12 month follow-up screening CT advised.
--- OUTSIDE RECORDS SUMMARY | 2024-05-09 12:22 | XMS_ITS | Clinical Summary ---
Author Organization [facility] Address [address] [place] [address] Phone Care Team Providers Care Sanforizer Name Role Phone Yariel Barnett MD Primary Care Provider [phone] Allergies No known active allergies Medications levothyroxine [...] Job Start Date Job End Date retired [employer] Not on file Not on file Not on file Last Filed Vital Signs Vital Sign Reading Time Taken Comments Blood Pressure 124/84 02/19/2017 12:41 PM NURSES ASSISTANT Pulse 78 02/19/2017 12:41 PM NURSES ASSISTANT Temperature 36.6 C (97.8 F) 02/19/2017 12:41 PM NURSES ASSISTANT Respiratory Rate 18 02/19/2017 12:41 PM NURSES ASSISTANT Oxygen Saturation 91% 02/19/2017 12:41 PM NURSES ASSISTANT Inhaled Oxygen Concentration - - Weight 71.8 kg (158 lb 4.8 oz) 02/19/2017 12:41 PM NURSES ASSISTANT Height 154.9 cm (5' 1 ) 02/19/2017 12:41 PM NURSES ASSISTANT Body Mass Index 29.91 02/19/2017 12:41 PM NURSES ASSISTANT Plan of Treatment Health Maintenance Due Date [...] Relevant to Health Maintenance Insurance MEDICARE C [facility] on file Care Teams Sanforizer Relationship Specialty Start Date End Date Yariel Barnett MD [address] [place], [place] [id number] PCP - General Internal Medicine 07/01/16
--- OUTSIDE RECORDS SUMMARY | 2024-05-09 12:22 | XMS_ITS | Clinical Summary ---
Author Organization [facility] [place] [address] Care Team Providers Care Removable Prosthodontist Name Role Phone Sy Persaud DO Primary Care Provider [phone] Allergies No known active allergies Medications albuterol [...] 04/11/2020,03/14/2020 Surgical History Surgery Date Site/Laterality Comments [place] TOTAL ABDOMINAL HYSTERECT W/WO RMVL TUBE OVARY [...] on file Legal Sex Female 9:19 PM SERVICE CENTER REPRESENTATIVE Gender Identity Not on file Sexual Orientation Not on file Obstetrics History Last Filed Vital Signs Vital Sign Reading Time Taken Comments Blood Pressure 146/80 03/10/2022 2:33 PM SERVICE CENTER REPRESENTATIVE Pulse 83 03/10/2022 2:33 PM SERVICE CENTER REPRESENTATIVE Temperature 36.8 C (98.2 F) 03/10/2022 2:33 PM SERVICE CENTER REPRESENTATIVE Respiratory Rate - - Oxygen Saturation - - Inhaled Oxygen Concentration - - Weight 68.7 kg (151 lb 6.4 oz) 03/10/2022 2:33 P M SERVICE CENTER REPRESENTATIVE Height 154.9 cm (5' 1 ) 03/10/2022 2:33 PM SERVICE CENTER REPRESENTATIVE Body Mass Index 28.61 03/10/2022 2:33 PM SERVICE CENTER REPRESENTATIVE Plan of Treatment Health Maintenance Due Date [...] Zoster Vaccine Completed 02/18/2019, 10/11, 12/23/2013 Insurance [facility] MDCR HMO REF [facility] MEDICARE ADVANTAGE [id number] [facility] HMO REF [id number] [place] [id number] [facility] HMO REF Care Teams Removable Prosthodontist Relationship Specialty Start Date End Date Sy Persaud DO PCP - General Internal Medicine 08/21/20
--- OUTSIDE RECORDS SUMMARY | 2024-05-09 12:22 | XMS_ITS | Clinical Summary ---
Author Organization [facility] Address [address] [place] [address] Care Team Providers Care School Year Nanny Name Role Phone Sy Persaud DO Primary Care Provider [phone] Allergies No known active allergies Medications levothyroxine [...] - 2023-2 5 season) 2023 04/11/2020, 03/14/2020 DTaP, Tdap and Td Vaccines ( 2 - Td or Tdap) 08/20/2029 08/21/2019 Zoster Vaccines Completed 02/18/2019, 11/03/2018, 12/23/2013 Meningococcal B Vaccine Aged Out No l onger eligible based on patient's age to complete this topic Meningococcal Vaccine Aged Out No lieana kayode eligible based on patient's age to complete this topic RSV Immunizations Under 20 Months Aged Out No longer eligible b ased on patient's age to complete this topic Insurance Care Teams School Year Nanny Relationship Specialty Start Date End Date Sy Persaud DO [address] [address] PCP - General INTERNAL MEDICINE 02/01/19
--- OUTSIDE RECORDS SUMMARY | 2024-05-09 12:22 | XMS_ITS | Referral Summary ---
Author Organization [facility] Address [facility] [place] [address] Care Team Providers Care Pulp Operator Name Role Phone Sy Persaud DO Primary Care Provider [phone] Allergies No known active allergies Medications albuterol [...] on file Legal Sex Female 9:19 PM MONUMENT STONECUTTER Gender Identity Not on file Sexual Orientation Not on file Last Filed Vital Signs Vital Sign Reading Time Taken Comments Blood Pressure 146/80 03/10/2022 2:33 PM MONUMENT STONECUTTER Pulse 83 03/10/2022 2:33 PM MONUMENT STONECUTTER Temperature 36.8 C (98.2 F) 03/10/2022 2:33 PM MONUMENT STONECUTTER Respiratory Rate - - Oxygen Saturation - - Inhaled Oxygen Concentration - - Weight 68.7 kg (151 lb 6.4 oz) 03/10/2022 2:33 P M MONUMENT STONECUTTER Height 154.9 cm (5' 1 ) 03/10/2022 2:33 PM MONUMENT STONECUTTER Body Mass Index 28.61 03/10/2022 2:33 PM MONUMENT STONECUTTER Plan of Treatment Not on file Insurance [facility] MDCR HMO REF MEDICARE ADVANTAGE Member Subscriber Plan / Payer (Ef fective 2022-Present) Name:Molly Morillo Relation to Subscriber:Self Name:Molly Morillo Payer ID:[id number] (NAIC) Type:[facility] MEDICARE Address: [address] HMO REF Care Teams Pulp Operator Relationship Specialty Start Date End Date Sy Persaud DO PCP - General Internal Medicine 08/21/20
== END 2024-05-09 10:49 | disposition home or self-care (01) ==
PROVIDERS: PCP Nurse Practitioner; Visit Provider Nurse Practitioner
DX: Z12.2 Encounter for screening for malignant neoplasm of respiratory organs (principal); Z87.891 Personal history of nicotine dependence
CPT/HCPCS: 71271

== ENCOUNTER 2024-05-25 00:33 | Day surgery (SDC) | payer MEDICARE, SELFPAY ==
[2024-05-23 08:29] VITALS: BMI 27.5
--- OUTSIDE RECORDS SUMMARY | 2024-05-25 00:35 | XMS_ITS | Clinical Summary ---
Author Organization [facility] Address [address] [place] [address] Care Team Providers Care Artist Manager Name Role Phone Sy Persaud DO Primary Care Provider [phone] Allergies No known active allergies Medications levothyroxine 88 MCG tablet Take 88 mcg by mouth daily. Active sertraline 50 MG tablet 08/12/2019 Active simvastatin 40 MG tablet Take 40 mg by mouth. Active albuterol sulfate HFA 108 (90 Base) MCG/ACT inhaler Inhale 2 puffs into the lungs every 6 (six) hours as needed for Wheezing. 90 g 04/28/2020 Active Immunizations Immunization Administration Dates Next Due Tdap (Adacel) 08/21/2019 [...] Due Date Last Done Comments Hepatitis C 1968 Annual Medicare Wellness Visit 2013 Dexa Scan (General) 2013 Pneumococcal Vaccine: 50+ Years (2 of 2 - PPSV23 or [...] to complete this topic Insurance Care Teams Artist Manager Relationship Specialty Start Date End Date Sy Persaud DO [address] [address] PCP - General INTERNAL MEDICINE 02/01/19
--- OUTSIDE RECORDS SUMMARY | 2024-05-25 00:35 | XMS_ITS | Clinical Summary ---
Author Organization [facility] Address [address] [place] [address] Phone Care Team Providers Care Sawsmith Name Role Phone Yariel Barnett MD Primary Care Provider [phone] Allergies No known active allergies Medications levothyroxine [...] Job Start Date Job End Date retired [employer] Not on file Not on file Not on file Last Filed Vital Signs Vital Sign Reading Time Taken Comments Blood Pressure 124/84 02/19/2017 12:41 PM DIRECTOR MEDICAL WRITING Pulse 78 02/19/2017 12:41 PM DIRECTOR MEDICAL WRITING Temperature 36.6 C (97.8 F) 02/19/2017 12:41 PM DIRECTOR MEDICAL WRITING Respiratory Rate 18 02/19/2017 12:41 PM DIRECTOR MEDICAL WRITING Oxygen Saturation 91% 02/19/2017 12:41 PM DIRECTOR MEDICAL WRITING Inhaled Oxygen Concentration - - Weight 71.8 kg (158 lb 4.8 oz) 02/19/2017 12:41 PM DIRECTOR MEDICAL WRITING Height 154.9 cm (5' 1 ) 02/19/2017 12:41 PM DIRECTOR MEDICAL WRITING Body Mass Index 29.91 02/19/2017 12:41 PM DIRECTOR MEDICAL WRITING Plan of Treatment Health Maintenance Due Date [...] Relevant to Health Maintenance Insurance MEDICARE C [facility] on file Care Teams Sawsmith Relationship Specialty Start Date End Date Yariel Barnett MD [address] [place], [place] [id number] PCP - General Internal Medicine 07/01/16
--- OUTSIDE RECORDS SUMMARY | 2024-05-25 00:35 | XMS_ITS | Clinical Summary ---
Author Organization [facility] Address [facility] [place] [address] Care Team Providers Care Surgical Processor Name Role Phone Sy Persaud DO Primary Care Provider [phone] Allergies No known active allergies Medications albuterol [...] 04/11/2020,03/14/2020 Surgical History Surgery Date Site/Laterality Comments CT TOTAL ABDOMINAL HYSTERECT W/WO RMVL TUBE OVARY [...] on file Legal Sex Female 9:19 PM CARBONATION EQUIPMENT OPERATOR Gender Identity Not on file Sexual Orientation Not on file Obstetrics History Last Filed Vital Signs Vital Sign Reading Time Taken Comments Blood Pressure 146/80 03/10/2022 2:33 PM CARBONATION EQUIPMENT OPERATOR Pulse 83 03/10/2022 2:33 PM CARBONATION EQUIPMENT OPERATOR Temperature 36.8 C (98.2 F) 03/10/2022 2:33 PM CARBONATION EQUIPMENT OPERATOR Respiratory Rate - - Oxygen Saturation - - Inhaled Oxygen Concentration - - Weight 68.7 kg (151 lb 6.4 oz) 03/10/2022 2:33 P M CARBONATION EQUIPMENT OPERATOR Height 154.9 cm (5' 1 ) 03/10/2022 2:33 PM CARBONATION EQUIPMENT OPERATOR Body Mass Index 28.61 03/10/2022 2:33 PM CARBONATION EQUIPMENT OPERATOR Plan of Treatment Health Maintenance Due Date [...] Zoster Vaccine Completed 02/18/2019, 10/11, 12/23/2013 Insurance [facility] MDCR HMO REF [facility] Address: [id number] [place] [address] [facility] MEDICARE ADVANT[facility] Address: [address] [address] [place] [address] [facility] Address: [address] [address] [place] [address] [facility] Address: [address] [address] [place] [address] Care Teams Surgical Processor Relationship Specialty Start Date End Date Sy Persaud DO PCP - General Internal Medicine 08/21/20
--- OUTSIDE RECORDS SUMMARY | 2024-05-25 00:35 | XMS_ITS | Referral Summary ---
Author Organization [facility] Address Formerly [facility] [place] [address] Care Team Providers Care Ground Transportation Operator Name Role Phone Sy Persaud DO Primary Care Provider [phone] Allergies No known active allergies Medications albuterol [...] on file Legal Sex Female 9:19 PM FERMENTATION OPERATOR Gender Identity Not on file Sexual Orientation Not on file Last Filed Vital Signs Vital Sign Reading Time Taken Comments Blood Pressure 146/80 03/10/2022 2:33 PM FERMENTATION OPERATOR Pulse 83 03/10/2022 2:33 PM FERMENTATION OPERATOR Temperature 36.8 C (98.2 F) 03/10/2022 2:33 PM FERMENTATION OPERATOR Respiratory Rate - - Oxygen Saturation - - Inhaled Oxygen Concentration - - Weight 68.7 kg (151 lb 6.4 oz) 03/10/2022 2:33 P M FERMENTATION OPERATOR Height 154.9 cm (5' 1 ) 03/10/2022 2:33 PM FERMENTATION OPERATOR Body Mass Index 28.61 03/10/2022 2:33 PM FERMENTATION OPERATOR Plan of Treatment Not on file Insurance [facility] HMO REF [facility] MEDICARE Address: [id number] [place] [address] MEDICARE ADVANTAGE MEDICAL [facility] MEDICARE Address: [address] HMO REF [facility]ICAL [facility] MEDICARE Address: [address] [place] [address] MED[facility] MEDICARE Address: [address] [place] [address] Care Teams Ground Transportation Operator Relationship Specialty Start Date End Date Sy Persaud DO PCP - General Internal Medicine 08/21/20
[2024-05-25 10:46] VITALS: BP 142/58; PULSE 69; RESP 20; TEMP 36.2; O2SAT 94; BMI 29.0
[2024-05-25] MEDS: LACTATED RINGERS 1,000 ML 150 ML IV CONT (10:48)
--- NOTE | 2024-05-25 11:00 | P.PNAN_ITS ---
Anes - Initial Pre Proc Eval Procedure: Operation Date: 05/25/24 11:45 Proposed Procedures p Esophagogastroduodenoscopy EGD - Jesus Jones MD Date/Time: 05/25/24 11:00 Surgeon: Jesus Jones MD Pre Op Diagnosis: Gastro-esophageal reflux disease without esophagit Patient Data Age: 74 Gender: F Height: 1.55 m Weight: 69.8 kg Last Vital Signs Temp 36.2 C L 05/25/24 10:46 Pulse 69 05/25/24 10:46 Resp 20 05/25/24 10:46 BP 142/58 H 05/25/24 10:46 Pulse Ox 94 05/25/24 10:46 O2 Del Method Room Air 05/25/24 10:46 Allergies Allergy/AdvReac Type Severity Reaction Status Date / Time cefuroxime Allergy Unknown Redness of Verified 05/25/24 10:42 Skin doxycycline Allergy Unknown Redness of Verified 05/25/24 10:42 Skin Home Medications ?Medication ?Instructions ?Recorded ?Confirmed ?Type calcium carbonate 500 mg PO DAILY 06/07/20 05/25/24 History cholecalciferol (vitamin D3) 1,250 1,250 mcg PO .COMPLEX #12 caps 10/02/23 05/25/24 Rx mcg (50,000 unit) capsule alprazolam 0.25 mg tablet (Xanax) 0.25 mg PO QHS PRN sleep #30 tabs 10/27/23 05/25/24 Rx famotidine 40 mg tablet See Rx Instructions .Route 10/29/23 05/23/24 Rx .COMPLEX #100 tabs sertraline 50 mg tablet See Rx Instructions .Route 04/06/24 05/25/24 Rx .COMPLEX #100 tabs simvastatin 40 mg tablet See Rx Instructions .Route 04/19/24 05/25/24 Rx .COMPLEX #100 tabs levothyroxine 75 mcg tablet See Rx Instructions .Route 05/03/24 05/25/24 Rx .COMPLEX #100 tabs Patient hx anesthesia problems: none Family hx anesthesia problems: none Results Review: All pre-operative results and documents have been reviewed as part of the pre- operative evaluation. [facility] Past Medical History Medical History Alcohol use BMI 27.0-27.9,adult COVID-19 Degenerative arthritis of knee, bilateral RUQ pain Screening for colon cancer Congenital absence of one kidney NAFLD (nonalcoholic fatty liver disease) Elevated liver enzymes Hx of adenomatous colonic polyps Depression Anxiety Chronic GERD Mixed hyperlipidemia Adult hypothyroidism JANNETTE (obstructive sleep apnea) Surgical History Surgical History Hx of repair of left rotator cuff Hx of colonoscopy Hx of total hysterectomy Family History Family History Mother Hypertension Father Family history of diabetes mellitus in first degree relative Sibling Lung cancer Social History Social History Smoking packs per day: 2 Smoking cigarettes per day: 40.0 Years smoked: 30 Smoking pack-years: 60.00 Smoking status: Former smoker Tobacco type: cigarettes Second hand tobacco smoke exposure: Yes Smoking end date: 02/09/15 Alcohol intake: current Drinks per week: 5 Alcohol use details: cut back from 20 Substance use: never Substance use type: does not use Do You Feel Safe in your Home?: Yes Lack of Transportation: No Lack of Food: Never True Current Housing: I Have Housing Concerned About Future Housing: No Difficulty Paying Gas/Electric Bills: No Difficulty Paying for Meds: No Currently Unemployed: No Education: High School Diploma/GED Difficulty w/ Childcare or Family Care: No Living arrangements: with family Occupation/Education: retired Additional occupation/education comments: [employer] Gender identity (if verbalized by the patient): Female Spiritual care concerns: No Anes - Eval Final PreProcedure Day of Procedure 05/25/24 11:00 Patient weight: overweight Heart: regular rate and rhythm Lungs: decreased breath sounds Airway: Mallampati scale class III Neurological: alert and oriented Last oral intake: >/= 8 hours ASA classification: III Emergent: no Anesthetic plan: proceed Anesthesia type and monitoring: general GIVS and standard monitoring Results Review: All pre-operative results and documents have been reviewed as part of the pre-o perative evaluation. Informed Consent: The patient's anesthetic plan and its attendant risks and benefits were discussed with the patient/family/POA. Questions were solicited and answers provided to the satisfaction of the patient/family/POA.
--- NOTE | 2024-05-25 11:20 | WPDHPUPDATE1 ---
History and Physical Update Update Date/Time: 05/25/24 11:20 History and Physical has been reviewed, including an updated exam of the patient. There are NO changes in the patient's condition. Risks, benefits, and alternatives have been discussed and questions answered. Patient agrees to proceed with procedure.
[2024-05-25 11:34] VITALS: BP 100/49; PULSE 68; RESP 28; O2SAT 98
[2024-05-25 11:44] VITALS: BP 119/55; PULSE 63; RESP 18; O2SAT 93
[2024-05-25 11:54] VITALS: BP 122/65; PULSE 65; RESP 18; O2SAT 94
== END 2024-05-25 12:07 | disposition home or self-care (01) ==
PROVIDERS: PCP Nurse Practitioner; Referring Provider Nurse Practitioner Family; Visit Provider Internal Medicine Gastroenterology
PROC: 0DJ08ZZ Inspection of Upper Intestinal Tract, Via Natural or Artificial Opening Endoscopic (ICD-10-PCS; CPT 43235; principal; 2024-05-25 11:45)
DX: K21.9 Gastro-esophageal reflux disease without esophagitis (principal); K44.9 Diaphragmatic hernia without obstruction or gangrene; K74.60 Unspecified cirrhosis of liver; E03.9 Hypothyroidism, unspecified; G47.33 Obstructive sleep apnea (adult) (pediatric); E78.00 Pure hypercholesterolemia, unspecified; D69.6 Thrombocytopenia, unspecified; M17.0 Bilateral primary osteoarthritis of knee; Q60.0 Renal agenesis, unilateral; F32.A Depression, unspecified; F41.9 Anxiety disorder, unspecified; K76.0 Fatty (change of) liver, not elsewhere classified; Z79.52 Long term (current) use of systemic steroids; Z98.890 Other specified postprocedural states; Z87.891 Personal history of nicotine dependence; Z86.0100 Personal history of colon polyps, unspecified; Z80.1 Family history of malignant neoplasm of trachea, bronchus and lung
CPT/HCPCS: 43235; J2003; J2704; J7120

== ENCOUNTER 2024-11-17 08:24 | Outpatient (CLI) | payer MEDICARE, SELFPAY ==
--- NOTE | ~2024-11-17 | US_ITS ---
ULTRASOUND ABDOMEN LIMITED (RIGHT UPPER QUADRANT) Clinical History: K74.60 - Unspecified cirrhosis of liver Comparison: Abdominal ultrasound 05/05/2024 Technique: Right upper quadrant sonography Findings: Liver: Cirrhosis. Enlarged. Echogenic. No intrahepatic biliary ductal dilatation. Normal hepatopedal flow main portal vein. No discrete mass identified. Common Duct: Normal caliber. 4 mm. Gallbladder: No stones. No wall thickening. No pericholecystic fluid. Pancreas: Unremarkable. IMPRESSION: 1. No acute findings or significant change. 2. Cirrhosis. Reviewed, dictated and finalized at location R.
== END 2024-11-17 08:25 | disposition home or self-care (01) ==
PROVIDERS: PCP Nurse Practitioner; Visit Provider Nurse Practitioner Family
DX: K74.60 Unspecified cirrhosis of liver (principal)
CPT/HCPCS: 76705

== ENCOUNTER 2024-12-27 10:23 | Outpatient (CLI) | payer MEDICARE, SELFPAY ==
[2024-12-27 11:21] LABS: Hematocrit 34.6 % (37.0-47.0); Hemoglobin 11.6 g/dL (12.0-15.0); Mean Corpuscular HGB Conc 33.5 g/dl (32-36); Mean Corpuscular Hemoglobin 37.4 pg (26-34); Mean Corpuscular Volume 111.6 fl (80-100); Platelet Count Result 177 k/mm3 (150-375); Red Blood Count 3.10 M/mm3 (4.2-5.4); White Blood Count 6.9 K/mm3 (4.5-10.0)
[2024-12-27 11:41] LABS: INR 1.2; Prothrombin Time 15.3 Seconds (11.1-14.7)
[2024-12-27 12:11] LABS: Alanine Aminotransferase 32 U/L (6-35); Albumin Level 3.3 g/dL (3.5-5.1); Alkaline Phosphatase 161 U/L (38-126); Anion Gap 7 mmol/L (4-12); Aspartate Amino Transferase 31 U/L (14-36); Bilirubin,Total 1.0 mg/dL (0.2-1.3); Blood Urea Nitrogen 8 mg/dL (7-17); Calcium 8.6 mg/dL (8.4-10.2); Carbon Dioxide 26 mmol/L (22-30); Chloride 107 mmol/L (98-107); Estimated Glomerular Filt Rate 59; Glucose 114 mg/dL (65-110); Potassium 3.4 mmol/L (3.4-5.0); Sodium 140 mmol/L (137-145); Total Protein 7.4 g/dL (6.3-8.2)
== END 2024-12-27 10:24 | disposition home or self-care (01) ==
PROVIDERS: PCP Nurse Practitioner; Visit Provider Nurse Practitioner Family
DX: K74.60 Unspecified cirrhosis of liver (principal)
CPT/HCPCS: 36415; 80053; 82103; 82105; 85027; 85610